=== PATIENT | female | born 1965 | race Caucasian/White ===

== ENCOUNTER 2019-02-23 11:41 | Inpatient (IN) | payer MEDICARE ==
[~2019-02-23] VITALS: Ht 152.4 cm; Wt 59.5 kg
[~2019-02-23 11:41] MED LIST: DSS100 PO; HYDR-4069 PO; [UNRECOGNIZED DRUG - CODE] PO
[2019-02-23] MEDS ORDERED: SENN-187 PO (11:44)
[2019-02-23] MEDS ORDERED: OXYC40 PO (11:44)
[2019-02-23] MEDS ORDERED: ETOMIDATE 2 MG/ML 10 ML VIAL IVP ONE ×2 (12:00→17:15)
[2019-02-23] MEDS ORDERED: VECURONIUM BROMIDE 10 MG/VIAL IVP ONE ×2 (12:00→17:15)
[2019-02-23 14:10] LABS: BASOPHILS % (AUTO) 0.4 % (0.0-2.0); EOSINOPHILS % (AUTO) 0.2 % (1.0-6.0); HEMATOCRIT 28.5 % (36-46); HEMOGLOBIN 8.7 g/dL (12.0-16.0); LYMPHOCYTES # (AUTO) 1.1 K/uL (1.0-4.8); LYMPHOCYTES % (AUTO) 6.2 % (22.0-44.0); MEAN CORPUSCULAR HEMOGLOBIN 26.6 pg (26.0-34.0); MEAN CORPUSCULAR HGB CONC 30.6 G/dL (31.0-37.0); MEAN CORPUSCULAR VOLUME 87 fL (80-100); MONOCYTES # (AUTO) 0.9 K/uL (0.1-1.0); NEUTROPHILS # (AUTO) 15.7 K/uL (1.8-7.7); PLATELET COUNT (AUTO) 221 K/uL (150-450); RED BLOOD CELL COUNT(AUTO) 3.28 MIL/uL (4.00-5.20); RED CELL DISTRIBUTION WIDTH 18.1 % (11.5-14.5)
[2019-02-23 14:12] LABS: NEUTROPHILS % (AUTO) 88.2 % (40.0-70.0)
[2019-02-23 14:26] LABS: ANION GAP 16 mmol/L (8-16); CARBON DIOXIDE 22 mmol/L (22-29); CHLORIDE 97 mmol/L (98-107); CREATININE 0.68 mg/dL (0.60-1.30); GLOMERULAR FILTR. RATE CALC > 60 mL/min (>60); GLUCOSE,RANDOM 89 mg/dL (70-110); POTASSIUM 3.5 mmol/L (3.5-5.1); SODIUM SERUM 135 mmol/L (136-145); UREA NITROGEN, BLOOD 15 mg/dL (7-18)
[2019-02-23 14:29] LABS: ALANINE AMINOTRANSFERASE 12 U/L (12-78); ALBUMIN 1.8 g/dL (3.4-5.0); ALKALINE PHOSPHATASE 110 U/L (46-116); ASPARTATE AMINOTRANSFERASE 24 U/L (15-37); BILIRUBIN,TOTAL 0.7 mg/dL (0.1-1.0); TOTAL PROTEIN, SERUM 6.3 g/dL (6.4-8.2)
[2019-02-23] MEDS ORDERED: HYDROmorphone 2 MG/ML SYRINGE IM ONE (14:30)
[2019-02-23 15:23] LABS: LACTIC ACID 2.5 mmol/L (0.4-2.0)
[2019-02-23 15:24] LABS: ERYTHROCYTE SEDIMENTATION RATE 106 MM/HR (0-20)
[2019-02-23] MEDS ORDERED: PIPERACILLIN/TAZO 3.375 GM/D5W 50 ML IV ONE (16:00)
[2019-02-23] MEDS ORDERED: VANCOMYCIN HCL 1 GM/D5% WATER 200 ML IV ONE (16:00)
[2019-02-23] MEDS ORDERED: SODIUM CHLORIDE 0.9% 1,800 ML IV ONE (16:08)
[2019-02-23] MEDS ORDERED: ONDANSETRON HCL 4 MG/2 ML VIAL IVP PRN ×2 (16:15→20:00)
[2019-02-23] MEDS ORDERED: HYDROmorphone 2 MG/ML SYRINGE IVP PRN (16:15)
[2019-02-23] MEDS ORDERED: ACETAMINOPHEN 325 MG TABLET PO PRN ×2 (16:15→20:00)
[2019-02-23] MEDS ORDERED: 0.9% SODIUM CHLORIDE 10 ML SYRINGE IVP PRN (16:15)
[2019-02-23] MEDS ORDERED: RAPID SEQUENCE KIT [RSI] 1 EACH KIT ONE (17:11)
[2019-02-23] MEDS ORDERED: SUCCINYLCHOLINE CHLORIDE 20 MG/ML 10 ML VIAL ONE (17:12)
[2019-02-23] MEDS ORDERED: PHENYLEPHRINE 200 MG/D5%-WATER 250 ML IV PRN ×2 (17:15→23:02)
[2019-02-23] MEDS ORDERED: NOREPINEPHRINE 4 MG/D5%-WATER 250 ML IV ONE (17:16)
[2019-02-23] MEDS ORDERED: PROPOFOL 1000 MG/ISO-OSM 100 ML IV ONE (17:16)
[2019-02-23] MEDS ORDERED: TRIA0.2573 PO (17:17)
[2019-02-23] MEDS: PROPOFOL 1000 MG/ISO-OSM 100 ML IV PRN ×2 (17:38→22:12)
[2019-02-23 17:49] LABS: ABG A-A DIFF O2 366.9 mmHg (10-20.0); ABG BASE EXCESS -7.8 mmol/L (-2.0-3.0); ABG CARBOXYHEMOGLOBIN 0.3 % (0.0-1.5); ABG HCO3 18.9 mmol/L (22.0-26.0); ABG METHEMOGLOBIN 0.3 % (0.0-1.5); ABG OXYGEN CONTENT 13.7 mL/dL (15.0-23.0); ABG OXYGEN SATURATION 99.7 % (95.0-98.0); ABG OXYHEMOGLOBIN 99.1 % (94.0-100.0); ABG PCO2 29 mmHg (35-45); ABG TOTAL HEMOGLOBIN 9.2 G/dL (12.0-18.0); O2 DEVICE,BLOOD GAS VENTILATOR (ROOM AIR); PEEP,BG 5 cm H2O; PO2, ARTERIAL BG 317.1 mmHg (84.0-92.0); SITE, BLOOD GAS RT RADIAL; SOURCE, BLOOD GAS ARTERIAL; TEMPERATURE, FAHRENHEIT, BG 98.6 FAHREN (96.0-98.6); VT, ABG 500 ml
[2019-02-23 18:09] LABS: APPEARANCE,URINE CLEAR (CLEAR); GLUCOSE, URINE (UA) NEGATIVE (NEGATIVE); KETONES,URINE 40 mg/dL (NEGATIVE); LEUKOCYTE ESTERASE ,URINE NEGATIVE (NEGATIVE); NITRATE,URINE NEGATIVE (NEGATIVE); OCCULT BLOOD,URINE NEGATIVE (NEGATIVE); PH,URINE 5.5 (5.0-8.0); PROTEIN,URINE POS 1+ (NEGATIVE)
[2019-02-23] MEDS ORDERED: IOVERSOL 320 MG/ML 100 ML VIAL ONE (18:14)
[2019-02-23] MEDS ORDERED: SODIUM CHLORIDE 0.9% 100 ML ONE (18:14)
[2019-02-23 18:20] LABS: BILIRUBIN,URINE PRELIM. POSITIVE (NEGATIVE)
[2019-02-23] MEDS ORDERED: SODIUM CHLORIDE 0.9% 1,000 ML IV ONE (20:00)
[2019-02-23] MEDS ORDERED: MAGNESIUM HYDROXIDE SUSPENSION 30 ML UDCUP PO PRN (20:00)
[2019-02-23] MEDS ORDERED: VANCOMYCIN HCL 500 MG in DEXTROSE 5%-WATER 100 ML IV ONE (20:15)
[2019-02-23 21:30] VITALS: BP 145/78
[2019-02-23] MEDS: DOCUSATE SODIUM 100 MG CAPSULE PO SCH (22:10)
[2019-02-23] MEDS: MethylPREDNISolone SOD SUCC 125 MG/2 ML VIAL IVP SCH (22:11)
[2019-02-23] MEDS: PIPERACILLIN/TAZO 3.375 GM/D5W 50 ML IV SCH (22:14)
[2019-02-23] MEDS ORDERED: PROPOFOL 1000 MG/ISO-OSM 100 ML IV PRN (23:02)
[2019-02-23] MEDS ORDERED: POTASSIUM CHLORIDE 20 MEQ ER TABLET PO PRN (23:15)
[2019-02-23] MEDS: HEPARIN SODIUM,PORCINE 5,000 UNITS/ML VIAL SQ SCH (23:26)
[2019-02-24] VITALS: BP 101/62
[2019-02-24] MEDS: MethylPREDNISolone SOD SUCC 125 MG/2 ML VIAL IVP SCH ×4 (01:00→23:27)
[2019-02-24 04:00] VITALS: BP 129/71
[2019-02-24] MEDS: PIPERACILLIN/TAZO 3.375 GM/D5W 50 ML IV SCH ×4 (05:12→23:26)
[2019-02-24 05:26] LABS: EOSINOPHILS % (AUTO) 0 % (1.0-6.0); LYMPHOCYTES # (AUTO) 1.1 K/uL (1.0-4.8); LYMPHOCYTES % (AUTO) 3.6 % (22.0-44.0); MEAN CORPUSCULAR HEMOGLOBIN 27.7 pg (26.0-34.0); MEAN CORPUSCULAR HGB CONC 32.1 G/dL (31.0-37.0); MEAN CORPUSCULAR VOLUME 86 fL (80-100); MONOCYTES # (AUTO) 0.8 K/uL (0.1-1.0); MONOCYTES % (AUTO) 2.5 % (2.0-9.0); PLATELET COUNT (AUTO) 247 K/uL (150-450); RED BLOOD CELL COUNT(AUTO) 3.24 MIL/uL (4.00-5.20); RED CELL DISTRIBUTION WIDTH 18.6 % (11.5-14.5)
[2019-02-24 05:29] LABS: NEUTROPHILS % (AUTO) 93.9 % (40.0-70.0)
[2019-02-24 05:37] LABS: ALANINE AMINOTRANSFERASE 13 U/L (12-78); ALBUMIN 1.6 g/dL (3.4-5.0); ALKALINE PHOSPHATASE 110 U/L (46-116); ANION GAP 17 mmol/L (8-16); ASPARTATE AMINOTRANSFERASE 25 U/L (15-37); BILIRUBIN,TOTAL 0.8 mg/dL (0.1-1.0); CALCIUM, TOTAL 8.3 mg/dL (8.8-10.5); CARBON DIOXIDE 19 mmol/L (22-29); CHLORIDE 102 mmol/L (98-107); GLOMERULAR FILTR. RATE CALC > 60 mL/min (>60); GLUCOSE,RANDOM 149 mg/dL (70-110); POTASSIUM 3.7 mmol/L (3.5-5.1); SODIUM SERUM 138 mmol/L (136-145); TOTAL PROTEIN, SERUM 5.7 g/dL (6.4-8.2); UREA NITROGEN, BLOOD 14 mg/dL (7-18)
[2019-02-24 08:00] VITALS: BP 145/77
[2019-02-24] MEDS: PANTOPRAZOLE SODIUM 40 MG/VIAL IVP SCH (08:08)
[2019-02-24] MEDS: HEPARIN SODIUM,PORCINE 5,000 UNITS/ML VIAL SQ SCH ×3 (08:08→23:26)
[2019-02-24] MEDS: VANCOMYCIN HCL 1.25 GM in DEXTROSE 5%-WATER 250 ML IV SCH ×2 (08:09→20:38)
[2019-02-24] MEDS: DOCUSATE SODIUM 100 MG CAPSULE PO SCH ×2 (09:00→20:37)
[2019-02-24 11:29] LABS: ABG A-A DIFF O2 114.8 mmHg (10-20.0); ABG BASE EXCESS -5.6 mmol/L (-2.0-3.0); ABG CARBOXYHEMOGLOBIN 0.2 % (0.0-1.5); ABG HCO3 20.7 mmol/L (22.0-26.0); ABG METHEMOGLOBIN 0.2 % (0.0-1.5); ABG OXYGEN CONTENT 13.3 mL/dL (15.0-23.0); ABG OXYGEN SATURATION 99.2 % (95.0-98.0); ABG OXYHEMOGLOBIN 98.8 % (94.0-100.0); ABG PCO2 26 mmHg (35-45); ABG PH 7.467 (7.35-7.450); ABG TOTAL HEMOGLOBIN 9.3 G/dL (12.0-18.0); PO2, ARTERIAL BG 176.7 mmHg (84.0-92.0); SOURCE, BLOOD GAS ARTERIAL; TEMPERATURE, FAHRENHEIT, BG 99.1 FAHREN (96.0-98.6)
[2019-02-24 11:30] LABS: CPAP, BG 0 cm H2O; O2 DEVICE,BLOOD GAS VENTILATOR (ROOM AIR); PRESSURE SUPPORT, BG 10 cm H2O; SITE, BLOOD GAS LFT RADIAL; VENT MODE, BG CPAP (ROOM AIR)
[2019-02-24 12:00] VITALS: BP 118/65
[2019-02-24] MEDS: RINGERS SOLUTION,LACTATED 1,000 ML IV SCH (13:36)
[2019-02-24] MEDS: ALBUMIN HUMAN 25%-25GM/100ML 100 ML IV SCH ×2 (13:36→20:38)
[2019-02-24 16:00] VITALS: BP 129/59
[2019-02-24] MEDS: PROPOFOL 1000 MG/ISO-OSM 100 ML IV PRN ×2 (17:57→23:26)
[2019-02-24 20:00] VITALS: BP 114/55
[2019-02-24] MEDS ORDERED: SODIUM CHLORIDE 0.9% 250 ML IV ONE (20:28)
[2019-02-25] VITALS (14 sets, daily range): BP systolic 110–148; BP diastolic 47–82
[2019-02-25] MEDS: RINGERS SOLUTION,LACTATED 1,000 ML IV SCH ×2 (01:35→14:39)
[2019-02-25] MEDS: ALBUMIN HUMAN 25%-25GM/100ML 100 ML IV SCH ×3 (04:15→18:04)
[2019-02-25] MEDS: PIPERACILLIN/TAZO 3.375 GM/D5W 50 ML IV SCH ×4 (04:16→21:57)
[2019-02-25 05:17] LABS: MEAN CORPUSCULAR HEMOGLOBIN 26.7 pg (26.0-34.0); MEAN CORPUSCULAR VOLUME 86 fL (80-100); PLATELET COUNT (AUTO) 168 K/uL (150-450); RED BLOOD CELL COUNT(AUTO) 2.37 MIL/uL (4.00-5.20); RED CELL DISTRIBUTION WIDTH 19.3 % (11.5-14.5)
[2019-02-25 05:27] LABS: ANION GAP 14 mmol/L (8-16); CALCIUM, TOTAL 8.6 mg/dL (8.8-10.5); CARBON DIOXIDE 23 mmol/L (22-29); CHLORIDE 107 mmol/L (98-107); CREATININE 0.57 mg/dL (0.60-1.30); GLOMERULAR FILTR. RATE CALC > 60 mL/min (>60); GLUCOSE,RANDOM 182 mg/dL (70-110); SODIUM SERUM 144 mmol/L (136-145); VANCOMYCIN,RANDOM 22.2 mcg/mL (25.0-50.0)
[2019-02-25 05:30] LABS: POTASSIUM 2.6 mmol/L (3.5-5.1)
[2019-02-25 05:31] LABS: HEMATOCRIT 20.5 % (36-46); HEMOGLOBIN 6.3 g/dL (12.0-16.0)
[2019-02-25 05:37] LABS: UREA NITROGEN, BLOOD 14 mg/dL (7-18)
[2019-02-25 05:42] LABS: BAND NEUTROPHILS % (MANUAL) 17 % (0-5); LYMPHOCYTES % (MANUAL) 2 % (22-44); MONOCYTES % (MANUAL) 5 % (2-9); SEGMENTED NEUTROPHILS % 76 % (40-70)
[2019-02-25 05:43] LABS: PLATELET MORPHOLOGY COMMENT GIANT PLTS PRESENT
[2019-02-25] MEDS: POTASSIUM CHL 10 MEQ/WATER 50 ML IV PRN ×9 (06:10→20:52)
[2019-02-25] MEDS: PROPOFOL 1000 MG/ISO-OSM 100 ML IV PRN ×2 (07:23→16:54)
[2019-02-25] MEDS: MethylPREDNISolone SOD SUCC 125 MG/2 ML VIAL IVP SCH ×3 (07:32→23:46)
[2019-02-25] MEDS: HEPARIN SODIUM,PORCINE 5,000 UNITS/ML VIAL SQ SCH ×3 (07:33→23:46)
[2019-02-25] MEDS: VANCOMYCIN HCL 1.25 GM in DEXTROSE 5%-WATER 250 ML IV SCH (07:33)
[2019-02-25] MEDS ORDERED: SODIUM CHLORIDE 0.9% 250 ML IV ONE (07:39)
[2019-02-25] MEDS: PANTOPRAZOLE SODIUM 40 MG/VIAL IVP SCH (10:07)
[2019-02-25] MEDS: DOCUSATE SODIUM 100 MG CAPSULE PO SCH ×2 (10:08→19:53)
[2019-02-25] MEDS: MORPHINE SULFATE 2 MG/ML SYRINGE IVP PRN (14:08)
[2019-02-25] MEDS: VANCOMYCIN HCL 1 GM/D5% WATER 200 ML IV SCH ×2 (15:34→22:53)
[2019-02-26] VITALS (14 sets, daily range): BP systolic 120–164; BP diastolic 59–88
[2019-02-26] MEDS: POTASSIUM CHL 10 MEQ/WATER 50 ML IV PRN (01:03)
[2019-02-26] MEDS: PROPOFOL 1000 MG/ISO-OSM 100 ML IV PRN ×4 (01:04→19:11)
[2019-02-26] MEDS: ALBUMIN HUMAN 25%-25GM/100ML 100 ML IV SCH ×3 (03:32→19:00)
[2019-02-26] MEDS: PIPERACILLIN/TAZO 3.375 GM/D5W 50 ML IV SCH ×4 (03:32→21:58)
[2019-02-26] MEDS: MORPHINE SULFATE 2 MG/ML SYRINGE IVP PRN ×4 (03:38→16:16)
[2019-02-26 05:45] LABS: ANION GAP 17 mmol/L (8-16); CALCIUM, TOTAL 7.9 mg/dL (8.8-10.5); CARBON DIOXIDE 17 mmol/L (22-29); CHLORIDE 108 mmol/L (98-107); CREATININE 0.29 mg/dL (0.60-1.30); GLOMERULAR FILTR. RATE CALC > 60 mL/min (>60); GLUCOSE,RANDOM 124 mg/dL (70-110); SODIUM SERUM 142 mmol/L (136-145); UREA NITROGEN, BLOOD 8 mg/dL (7-18)
[2019-02-26] MEDS: VANCOMYCIN HCL 1 GM/D5% WATER 200 ML IV SCH ×3 (06:15→22:57)
[2019-02-26] MEDS: RINGERS SOLUTION,LACTATED 1,000 ML IV SCH ×2 (06:15→16:16)
[2019-02-26] MEDS: HEPARIN SODIUM,PORCINE 5,000 UNITS/ML VIAL SQ SCH ×2 (07:40→16:15)
[2019-02-26] MEDS: MethylPREDNISolone SOD SUCC 125 MG/2 ML VIAL IVP SCH ×3 (07:40→23:59)
[2019-02-26 08:09] LABS: HEMATOCRIT 27.5 % (36-46); HEMOGLOBIN 8.7 g/dL (12.0-16.0)
[2019-02-26] MEDS: PANTOPRAZOLE SODIUM 40 MG/VIAL IVP SCH (08:48)
[2019-02-26] MEDS: DOCUSATE SODIUM 100 MG CAPSULE PO SCH ×2 (08:49→21:00)
[2019-02-27] VITALS (8 sets, daily range): BP systolic 120–151; BP diastolic 48–77
[2019-02-27] MEDS: PROPOFOL 1000 MG/ISO-OSM 100 ML IV PRN ×3 (01:13→19:00)
[2019-02-27] MEDS ORDERED: SODIUM CHLORIDE 0.9% 250 ML IV ONE (02:14)
[2019-02-27] MEDS: MORPHINE SULFATE 2 MG/ML SYRINGE IVP PRN ×3 (03:01→20:03)
[2019-02-27] MEDS: ALBUMIN HUMAN 25%-25GM/100ML 100 ML IV SCH ×3 (03:32→19:01)
[2019-02-27] MEDS: PIPERACILLIN/TAZO 3.375 GM/D5W 50 ML IV SCH ×4 (03:43→22:16)
[2019-02-27 05:23] LABS: ANION GAP 13 mmol/L (8-16); CALCIUM, TOTAL 9.2 mg/dL (8.8-10.5); CARBON DIOXIDE 24 mmol/L (22-29); CHLORIDE 108 mmol/L (98-107); CREATININE 0.53 mg/dL (0.60-1.30); GLOMERULAR FILTR. RATE CALC > 60 mL/min (>60); GLUCOSE,RANDOM 177 mg/dL (70-110); POTASSIUM 3.3 mmol/L (3.5-5.1); SODIUM SERUM 145 mmol/L (136-145); UREA NITROGEN, BLOOD 14 mg/dL (7-18); VANCOMYCIN,RANDOM 28.7 mcg/mL (25.0-50.0)
[2019-02-27] MEDS: RINGERS SOLUTION,LACTATED 1,000 ML IV SCH ×2 (06:08→17:21)
[2019-02-27] MEDS: VANCOMYCIN HCL 1 GM/D5% WATER 200 ML IV SCH (06:38)
[2019-02-27] MEDS: POTASSIUM CHL 10 MEQ/WATER 50 ML IV PRN ×3 (07:09→10:01)
[2019-02-27 07:53] LABS: BASOPHILS % (AUTO) 0.1 % (0.0-2.0); EOSINOPHILS % (AUTO) 0 % (1.0-6.0); HEMATOCRIT 25.9 % (36-46); HEMOGLOBIN 8.3 g/dL (12.0-16.0); LYMPHOCYTES # (AUTO) 0.7 K/uL (1.0-4.8); LYMPHOCYTES % (AUTO) 5.7 % (22.0-44.0); MEAN CORPUSCULAR HEMOGLOBIN 27.3 pg (26.0-34.0); MEAN CORPUSCULAR HGB CONC 32.2 G/dL (31.0-37.0); MEAN CORPUSCULAR VOLUME 85 fL (80-100); MONOCYTES # (AUTO) 0.5 K/uL (0.1-1.0); MONOCYTES % (AUTO) 3.9 % (2.0-9.0); PLATELET COUNT (AUTO) 128 K/uL (150-450); RED BLOOD CELL COUNT(AUTO) 3.05 MIL/uL (4.00-5.20); RED CELL DISTRIBUTION WIDTH 16.9 % (11.5-14.5)
[2019-02-27 07:55] LABS: NEUTROPHILS % (AUTO) 90.3 % (40.0-70.0)
[2019-02-27] MEDS: MethylPREDNISolone SOD SUCC 125 MG/2 ML VIAL IVP SCH ×3 (07:57→23:49)
[2019-02-27] MEDS: HEPARIN SODIUM,PORCINE 5,000 UNITS/ML VIAL SQ SCH ×4 (07:57→23:49)
[2019-02-27] MEDS ORDERED: METOCLOPRAMIDE HCL 5 MG TABLET PO SCH (08:30)
[2019-02-27] MEDS: PANTOPRAZOLE SODIUM 40 MG/VIAL IVP SCH (08:37)
[2019-02-27] MEDS: DOCUSATE SODIUM 100 MG CAPSULE PO SCH ×2 (09:00→21:00)
[2019-02-27 09:26] LABS: ABG A-A DIFF O2 142.3 mmHg (10-20.0); ABG BASE EXCESS -0.2 mmol/L (-2.0-3.0); ABG CARBOXYHEMOGLOBIN 0.3 % (0.0-1.5); ABG HCO3 24.7 mmol/L (22.0-26.0); ABG METHEMOGLOBIN 0.3 % (0.0-1.5); ABG OXYGEN CONTENT 13.3 mL/dL (15.0-23.0); ABG OXYGEN SATURATION 98.8 % (95.0-98.0); ABG OXYHEMOGLOBIN 98.2 % (94.0-100.0); ABG PCO2 30 mmHg (35-45); ABG PH 7.507 (7.35-7.450); ABG TOTAL HEMOGLOBIN 9.4 G/dL (12.0-18.0); PO2, ARTERIAL BG 145.5 mmHg (84.0-92.0); SOURCE, BLOOD GAS ARTERIAL; TEMPERATURE, FAHRENHEIT, BG 97.9 FAHREN (96.0-98.6)
[2019-02-27 09:27] LABS: O2 DEVICE,BLOOD GAS VENTILATOR (ROOM AIR); PEEP,BG 5 cm H2O; SITE, BLOOD GAS RT RADIAL; VT, ABG 500 ml
[2019-02-27] MEDS ORDERED: VANCOMYCIN HCL 750 MG in DEXTROSE 5%-WATER 250 ML IV SCH (15:00)
[2019-02-27] MEDS: METOCLOPRAMIDE HCL 5 MG/ML 2 ML VIAL IVP SCH ×2 (16:07→23:48)
[2019-02-28] VITALS (7 sets, daily range): BP systolic 117–154; BP diastolic 55–78
[2019-02-28] MEDS: PROPOFOL 1000 MG/ISO-OSM 100 ML IV PRN ×3 (01:41→11:47)
[2019-02-28] MEDS: ALBUMIN HUMAN 25%-25GM/100ML 100 ML IV SCH ×2 (03:30→11:43)
[2019-02-28] MEDS: PIPERACILLIN/TAZO 3.375 GM/D5W 50 ML IV SCH ×3 (04:00→16:07)
[2019-02-28] MEDS: MORPHINE SULFATE 2 MG/ML SYRINGE IVP PRN ×2 (05:01→16:08)
[2019-02-28 05:34] LABS: ANION GAP 13 mmol/L (8-16); CALCIUM, TOTAL 8.9 mg/dL (8.8-10.5); CARBON DIOXIDE 25 mmol/L (22-29); CHLORIDE 107 mmol/L (98-107); GLOMERULAR FILTR. RATE CALC > 60 mL/min (>60); GLUCOSE,RANDOM 186 mg/dL (70-110); POTASSIUM 3.3 mmol/L (3.5-5.1); SODIUM SERUM 145 mmol/L (136-145); UREA NITROGEN, BLOOD 20 mg/dL (7-18)
[2019-02-28] MEDS: POTASSIUM CHL 10 MEQ/WATER 50 ML IV PRN ×3 (06:31→10:16)
[2019-02-28] MEDS: RINGERS SOLUTION,LACTATED 1,000 ML IV SCH (06:56)
[2019-02-28] MEDS: DOCUSATE SODIUM 100 MG CAPSULE PO SCH (08:46)
[2019-02-28] MEDS: METOCLOPRAMIDE HCL 5 MG/ML 2 ML VIAL IVP SCH ×2 (08:49→16:00)
[2019-02-28] MEDS: HEPARIN SODIUM,PORCINE 5,000 UNITS/ML VIAL SQ SCH ×2 (08:50→16:07)
[2019-02-28] MEDS: PANTOPRAZOLE SODIUM 40 MG/VIAL IVP SCH (08:50)
[2019-02-28] MEDS: MethylPREDNISolone SOD SUCC 125 MG/2 ML VIAL IVP SCH ×2 (08:50→16:07)
[2019-02-28] MEDS: MORPHINE SULFATE 100 MG/NS/PF 100 ML IV PRN (17:55)
[2019-02-28] MEDS ORDERED: ACETAMINOPHEN 325 MG TABLET PO PRN (18:45)
[2019-02-28] MEDS: LORazepam 2 MG/ML VIAL IVP PRN (19:47)
[2019-03-01] VITALS (7 sets, daily range): BP systolic 83–157; BP diastolic 50–81
[2019-03-01] MEDS: LORazepam 2 MG/ML VIAL IVP PRN ×5 (00:20→22:42)
[2019-03-01] MEDS: MORPHINE SULFATE 100 MG/NS/PF 100 ML IV PRN ×4 (09:34→12:46)
[2019-03-01] MEDS: GLYCOPYRROLATE 0.2 MG/ML VIAL IVP PRN ×3 (09:34→23:35)
[2019-03-02] MEDS: MORPHINE SULFATE 100 MG/NS/PF 100 ML IV PRN ×3 (00:24→21:49)
[2019-03-02 04:43] VITALS: BP 85/48
[2019-03-02] MEDS: GLYCOPYRROLATE 0.2 MG/ML VIAL IVP PRN ×2 (06:16→15:24)
[2019-03-02 07:47] VITALS: BP 70/43
[2019-03-02 11:31] VITALS: BP 56/39
[2019-03-02 15:19] VITALS: BP 71/42
[2019-03-02 19:59] VITALS: BP 61/36
[2019-03-02 23:18] VITALS: BP 62/35
[2019-03-03 04:32] VITALS: BP 64/35
[2019-03-03] MEDS: MORPHINE SULFATE 100 MG/NS/PF 100 ML IV PRN ×2 (08:45→17:54)
[2019-03-03 08:51] VITALS: BP 53/33
[2019-03-03 11:33] VITALS: BP 56/47
[2019-03-03 15:36] VITALS: BP 60/47
[2019-03-03 20:08] VITALS: BP 67/41
[2019-03-03 23:44] VITALS: BP 66/39
[2019-03-04] MEDS: MORPHINE SULFATE 100 MG/NS/PF 100 ML IV PRN ×4 (00:29→22:36)
[2019-03-04 04:27] VITALS: BP 77/39
[2019-03-04 08:21] VITALS: BP 83/38
[2019-03-04 11:42] VITALS: BP 72/48
[2019-03-04 16:30] VITALS: BP 69/43
[2019-03-04 20:06] VITALS: BP 83/45
[2019-03-04 22:39] VITALS: BP 85/50
[2019-03-05] VITALS (7 sets, daily range): BP systolic 59–82; BP diastolic 33–53
[2019-03-05] MEDS: MORPHINE SULFATE 100 MG/NS/PF 100 ML IV PRN ×3 (06:10→21:46)
[2019-03-05] MEDS: LORazepam 2 MG/ML VIAL IVP PRN ×2 (12:07→14:36)
[2019-03-06] MEDS: MORPHINE SULFATE 100 MG/NS/PF 100 ML IV PRN ×3 (03:43→16:56)
[2019-03-06 03:46] VITALS: BP 97/55
[2019-03-06 08:27] VITALS: BP 116/49
[2019-03-06 11:38] VITALS: BP 106/52
[2019-03-06 15:22] VITALS: BP 54/30
[2019-03-06 20:16] VITALS: BP 55/25
[2019-03-06] MEDS: LORazepam 2 MG/ML VIAL IVP PRN (20:17)
== END 2019-03-06 23:50 | disposition expired | DRG 870 ==
LOC: EMS 11:43 → ICU 18:15 → 5N 02-28 18:20
PROVIDERS: ADMIT Internal Medicine; ATTEND Internal Medicine
PROC: 5A1955Z Respiratory Ventilation, Greater than 96 Consecutive Hours (ICD-10-PCS; principal; 2019-02-23)
PROC: 0BH17EZ Insertion of Endotracheal Airway into Trachea, Via Natural or Artificial Opening (ICD-10-PCS; 2019-02-23)
PROC: 30233N1 Transfusion of Nonautologous Red Blood Cells into Peripheral Vein, Percutaneous Approach (ICD-10-PCS; 2019-02-25)
PROC: 05HY33Z Insertion of Infusion Device into Upper Vein, Percutaneous Approach (ICD-10-PCS; 2019-02-26)
PROC: B54MZZA Ultrasonography of Right Upper Extremity Veins, Guidance (ICD-10-PCS; 2019-02-26)
PROC: 05HY33Z Insertion of Infusion Device into Upper Vein, Percutaneous Approach (ICD-10-PCS; 2019-02-27)
PROC: B54MZZA Ultrasonography of Right Upper Extremity Veins, Guidance (ICD-10-PCS; 2019-02-27)
DX: A41.51 Sepsis due to Escherichia coli [E. coli] (principal); R65.21 Severe sepsis with septic shock; J96.01 Acute respiratory failure with hypoxia; C78.02 Secondary malignant neoplasm of left lung; C78.01 Secondary malignant neoplasm of right lung; C49.9 Malignant neoplasm of connective and soft tissue, unspecified; R64 Cachexia; L03.115 Cellulitis of right lower limb; E87.2 Acidosis; Z99.11 Dependence on respirator [ventilator] status; W18.39XA Other fall on same level, initial encounter; I34.0 Nonrheumatic mitral (valve) insufficiency; D63.8 Anemia in other chronic diseases classified elsewhere; Z51.5 Encounter for palliative care; Z85.6 Personal history of leukemia; Z68.24 Body mass index [BMI] 24.0-24.9, adult; Z79.899 Other long term (current) drug therapy; Y93.89 Activity, other specified; Y92.89 Other specified places as the place of occurrence of the external cause; Y99.8 Other external cause status; Z68.25 Body mass index [BMI] 25.0-25.9, adult; E87.6 Hypokalemia
CPT/HCPCS: 36245; 36569; 36600; 71275; 73502; 73701; 76937; 82805; 83605; 84132; 85014; 85018; 85651; 86850; 86900; 86901; 86920; 87040; 87070; 87081; 87205; 93005; 93306; 94002; 94003; 99291; C9113; G0378; J0330; J1170; J1644; J2060; J2270; J2370; J2543; J2704; J2765; J2930; J3370; J3480; J3490; J7030; J7050; J7060; J7120; P9016; P9046